=== PATIENT | female | born 2000 | race American Indian/Alaskan Native ===

== ENCOUNTER 2021-08-19 00:38 | Emergency (ER) | payer SELFPAY ==
[2021-08-19 03:41] VITALS: BP 111/61
[2021-08-19] MEDS ORDERED: PENICILLIN G BENZATHINE 1.2 MILLION UNIT/2 ML INJ IM STA (04:30)
[2021-08-19] MEDS ORDERED: dexAMETHasone 4 MG/ML VIAL PO ONE (04:30)
--- NOTE | 2021-08-19 04:40 | Emergency Department Report ---
ED ENT HPI - General Chief complaint: Sore Throat Stated complaint: SORE THROAT X 2 DAYS,CHILLS,NAUSEA Time Seen by Provider: 08/19/21 04:08 Source: patient Mode of arrival: Ambulatory Limitations: Language Barrier - History of Present Illness MD complaint: sore throat -: Gradual Location: throat Severity: mild, moderate Quality: dull Consistency: constant Improves with: none Worsens with: swallowing, eating Context- Dental: history of dental caries, poor dental care Associated Symptoms: pain with swallowing, sore throat - Related Data Previous Rx's Medication Instructions Recorded Last Taken Type Lidocaine Viscous 2% 5 ml MM Q3H PRN #120 udc 08/19/21 Unknown Rx Allergies Allergy/AdvReac Type Severity Reaction Status Date / Time No Known Allergies Allergy Unverified 08/19/21 03:48 ED Dental HPI - General Chief complaint: Sore Throat Stated complaint: SORE THROAT X 2 DAYS,CHILLS,NAUSEA Time Seen by Provider: 08/19/21 04:08 Source: patient Mode of arrival: Ambulatory Limitations: Language Barrier - Related Data Previous Rx's Medication Instructions Recorded Last Taken Type Lidocaine Viscous 2% 5 ml MM Q3H PRN #120 ud 08/19/21 Unknown Rx Allergies Allergy/AdvReac Type Severity Reaction Status Date / Time No Known Allergies Allergy Unverified 08/19/21 03:48 ED Review of Systems ROS: Stated complaint: SORE THROAT X 2 DAYS,CHILLS,NAUSEA Other details as noted in HPI Comment: All other systems reviewed and negative ED Past Medical Hx - Past Medical History Previous Medical History?: No - Surgical History Past Surgical History?: No - Social History Smoking Status: Never Smoker Substance Use Type: None - Medications Home Medications: Home Medications Medication Instructions Recorded Confirmed Last Taken Type Lidocaine Viscous 2% 5 ml MM Q3H PRN #120 ud 08/19/21 Unknown Rx ED Physical Exam - General Limitations: Language Barrier General appearance: alert, in no apparent distress - Head Head exam: Present: atraumatic, normocephalic - Eye Eye exam: Present: normal appearance - ENT ENT exam: Present: mucous membranes moist, other (Pharynx is red and swollen with some exudates of the right tonsillar region. Airway patent tongue uvula midline no drooling normal voice) - Neck Neck exam: Present: normal inspection, full ROM, lymphadenopathy. Absent: tenderness - Respiratory Respiratory exam: Present: normal lung sounds bilaterally. Absent: respiratory distress - Cardiovascular Cardiovascular Exam: Present: regular rate, normal rhythm. Absent: systolic murmur, diastolic murmur, rubs, gallop - GI/Abdominal GI/Abdominal exam: Present: soft, normal bowel sounds - Extremities Exam Extremities exam: Present: normal inspection - Back Exam Back exam: Present: normal inspection - Neurological Exam Neurological exam: Present: alert, oriented X3 - Psychiatric Psychiatric exam: Present: normal affect, normal mood - Skin Skin exam: Present: warm, dry, intact, normal color. Absent: rash ED Course Vital Signs 08/19/21 03:31 Temperature 99.4 F Pulse Rate 81 Respiratory 18 Rate Blood Pressure 111/61 O2 Sat by Pulse 99 Oximetry Critical care attestation.: If time is entered above; I have spent that time in minutes in the direct care of this critically ill patient, excluding procedure time. ED Disposition Clinical Impression: Pharyngitis Disposition: 01 HOME / SELF CARE / HOMELESS Is pt being admited?: No Does the pt Need Aspirin: No Condition: Stable Instructions: Pharyngitis Prescriptions: Lidocaine Viscous 2% 5 ml MM Q3H PRN #120 udc PRN Reason: Pain, Moderate (4-6) Referrals: [facility] [Provider Group] - 3-5 Days
== END 2021-08-19 05:59 | disposition home or self-care (01) ==
LOC: ED 00:38
DX: J02.9 Acute pharyngitis, unspecified (principal)
CPT/HCPCS: 96372; 99282; J0561; J1100